=== PATIENT | male | born 1950 | race Two or more races ===

== ENCOUNTER 2021-02-14 10:30 | Inpatient (IN) | payer OTHER ==
[2021-02-14 11:01] VITALS: BMI 29.7
[2021-02-14] MEDS ORDERED: DEXAMETHASONE SOD PHOSPHATE 10 MG/1 ML VIAL IVPUSH ONE (11:21)
[2021-02-14] MEDS ORDERED: AZITHROMYCIN IVPB 500 MG in DEXTROSE 5%-WATER - 250 ML IVPB ONE (11:24)
[2021-02-14] MEDS ORDERED: CEFTRIAXONE 1,000 MG in DEXTROSE 5%-WATER - 50 ML IVPB ONE (11:25)
[2021-02-14 11:45] LABS: BASO % 0.2 % (0-2.0); LYMPH % 6.6 % (8-40); MCH 29.4 pg (25.7-33.7); MCHC 33.4 g/dl (32.0-35.9); MEAN CELL VOLUME 88.1 fl (80-96); MEAN PLT VOLUME 9.7 fl (7.5-11.1); NEUT % 87.2 % (42.8-82.8); PLATELET COUNT 293 K/MM3 (134-434); RBC 4.43 M/mm3 (4.00-5.60); RDW 14.1 % (11.9-15.9); VENOUS BASE EXCESS -3.5 mmol/L (-2-2); VENOUS O2 SATURATION 51.9 % (70-80); VENOUS PCO2 38.8 mmHg (38-52); VENOUS PH 7.361 (7.310-7.410)
[2021-02-14 11:52] LABS: INR 1.48 (0.83-1.09)
[2021-02-14 11:54] LABS: ACTIVATED PTT 31.6 SECONDS (25.2-36.5)
[2021-02-14] MEDS ORDERED: CEFTRIAXONE 1 GM/50 ML BAG ONE (11:57)
[2021-02-14] MEDS ORDERED: DEXAMETHASONE SOD PHOSPHATE 10 MG/1 ML VIAL ONE (11:57)
[2021-02-14] MEDS ORDERED: AZITHROMYCIN IVPB 500 MG/250 ML BAG IVPB ONE (11:58)
[2021-02-14 12:07] LABS: CHLORIDE 103 mmol/L (98-107); POTASSIUM 4.3 mmol/L (3.5-5.1); SODIUM 137 mmol/L (136-145)
[2021-02-14 12:09] LABS: ALBUMIN 2.9 g/dl (3.4-5.0); ANION GAP 13 MMOL/L (8-16); CALCIUM 8.5 mg/dL (8.5-10.1); CO2 22 mmol/L (21-32); GLUCOSE,RANDOM 225 mg/dL (74-106)
[2021-02-14 12:12] LABS: BILIRUBIN,DIRECT 0.4 mg/dL (0.0-0.2); SGPT/ALT 82 U/L (13-61)
[2021-02-14 12:13] LABS: CREATININE 1.8 mg/dL (0.55-1.3); SGOT/AST 156 U/L (15-37)
[2021-02-14 12:14] LABS: BILIRUBIN,TOTAL 0.9 mg/dL (0.2-1); TOT PROT 7.4 g/dl (6.4-8.2)
[2021-02-14 12:15] LABS: ALK PHOS 76 U/L (45-117)
[2021-02-14 12:18] LABS: LACTIC ACID 5.5 mmol/L (0.4-2.0); LDH 953 U/L (87-246)
[2021-02-14] MEDS ORDERED: SODIUM CHLORIDE 1,000 ML IV STA (12:19)
[2021-02-14 14:00] LABS: EPI CELLS >36 /uL (0-25.1); HYALINE CASTS 74 /uL (0-3.1); URINE APPEARANCE CLOUDY; URINE BACTERIA 35 /uL (0-1359); URINE BILIRUBIN 1+ (NEGATIVE); URINE COLOR DK YELLOW; URINE GLUCOSE (UA) NEGATIVE (NEGATIVE); URINE KETONE TRACE (NEGATIVE); URINE LEUK ESTERASE NEGATIVE (NEGATIVE); URINE NITRITE NEGATIVE (NEGATIVE); URINE PROTEIN 2+ (NEGATIVE)
[2021-02-14 14:02] LABS: URINE RBC 55.2 /uL (0-23.9); URINE WBC 77.3 /uL (0-25.8)
[2021-02-14 16:31] LABS: LACTIC ACID 2.8 mmol/L (0.4-2.0)
[2021-02-14] MEDS ORDERED: SODIUM CHLORIDE 1,000 ML IV SCH (23:30)
[2021-02-14] MEDS ORDERED: REMDESIVIR 200 MG in SODIUM CHLORIDE 210 ML IVPB ONE (23:53)
[2021-02-15] MEDS ORDERED: DEXMEDETOMIDINE IN 0.9 % NACL 200 MCG/50 ML EACH IVPB SCH (00:30)
[2021-02-15] MEDS: APIXABAN 5 MG TABLET PO SCH ×2 (01:20→10:17)
[2021-02-15 03:36] VITALS: TEMP 98.4
[2021-02-15] MEDS ORDERED: MORPHINE SULFATE 2 MG/ML VIAL IVPUSH ONE (06:06)
[2021-02-15] MEDS ORDERED: MORPHINE SULFATE 2 MG/ML VIAL ONE (06:08)
[2021-02-15 06:39] LABS: BASO % 0.1 % (0-2.0); HEMATOCRIT 34.9 % (35.4-49); HEMOGLOBIN 11.7 GM/dL (11.7-16.9); LYMPH % 5.1 % (8-40); MCH 29.2 pg (25.7-33.7); MCHC 33.5 g/dl (32.0-35.9); MEAN CELL VOLUME 87.3 fl (80-96); MEAN PLT VOLUME 9.9 fl (7.5-11.1); MONO % 5.1 % (3.8-10.2); NEUT % 89.7 % (42.8-82.8); PLATELET COUNT 264 K/MM3 (134-434); RBC 3.99 M/mm3 (4.00-5.60); RDW 13.8 % (11.9-15.9); WHITE BLOOD COUNT 11.3 K/mm3 (4.0-10.0)
[2021-02-15 06:46] LABS: CHLORIDE 107 mmol/L (98-107); POTASSIUM 3.8 mmol/L (3.5-5.1); SODIUM 139 mmol/L (136-145)
[2021-02-15 06:52] LABS: ALBUMIN 2.6 g/dl (3.4-5.0); ANION GAP 11 MMOL/L (8-16); BLOOD UREA NITROGEN 44.8 mg/dL (7-18); CALCIUM 7.8 mg/dL (8.5-10.1); CO2 21 mmol/L (21-32); MAGNESIUM 2.3 mg/dL (1.8-2.4)
[2021-02-15 06:53] LABS: GLUCOSE,RANDOM 296 mg/dL (74-106)
[2021-02-15 06:55] LABS: PHOSPHOROUS 3.5 mg/dL (2.5-4.9); SGPT/ALT 79 U/L (13-61)
[2021-02-15 06:56] LABS: CREATININE 1.2 mg/dL (0.55-1.3); LDH 922 U/L (87-246); SGOT/AST 124 U/L (15-37)
[2021-02-15 06:57] LABS: BILIRUBIN,TOTAL 0.6 mg/dL (0.2-1); TOT PROT 6.6 g/dl (6.4-8.2)
[2021-02-15 06:58] LABS: ALK PHOS 77 U/L (45-117)
[2021-02-15 07:19] VITALS: BP 146/105; PULSE 95
[2021-02-15] MEDS ORDERED: LORazepam 2 MG/ML SDV VIAL IVPUSH ONE (08:05)
[2021-02-15] MEDS ORDERED: LORazepam 2 MG/ML SDV VIAL ONE (08:09)
[2021-02-15] MEDS ORDERED: PROPOFOL 1,000,000 MCG/100 ML VIAL ONE (09:25)
[2021-02-15] MEDS ORDERED: ROCURONIUM BROMIDE 100 MG/10 ML VIAL ONE (09:25)
[2021-02-15] MEDS ORDERED: PROPOFOL 1,000,000 MCG/100 ML VIAL IVPB SCH (09:30)
[2021-02-15] MEDS ORDERED: MIDAZOLAM 100 MG in SODIUM CHLORIDE 100 ML IVPB SCH (09:30)
[2021-02-15] MEDS ORDERED: NOREPINEPHRINE BITARTRATE 4 MG/4 ML ML IV ONE (09:47)
[2021-02-15] MEDS ORDERED: MIDAZOLAM IN 0.9 % SOD.CHLORID 100 MG/100 ML PLAST..BAG IVPB SCH (09:51)
[2021-02-15] MEDS ORDERED: ALLOPURINOL 100 MG TABLET (FP) PO SCH (10:00)
[2021-02-15] MEDS ORDERED: DEXAMETHASONE SOD PHOSPHATE 4 MG/1 ML VIAL IVPUSH SCH (10:00)
[2021-02-15] MEDS ORDERED: PANTOPRAZOLE SODIUM 40 MG VIAL IVPUSH SCH (10:00)
[2021-02-15] MEDS ORDERED: COLCHICINE 0.6 MG CAP PO SCH (10:00)
[2021-02-15] MEDS ORDERED: REMDESIVIR 100 MG in SODIUM CHLORIDE 230 ML IVPB SCH (23:54)
== END 2021-02-15 10:01 | disposition expired | DRG 208 ==
LOC: JER 10:30 → JERBED 12:28 → JICU 23:36
PROVIDERS: ADMIT Internal Medicine Pulmonary Disease; ATTEND Internal Medicine Pulmonary Disease
PROC: 0BH17EZ Insertion of Endotracheal Airway into Trachea, Via Natural or Artificial Opening (ICD-10-PCS; principal; 2021-02-14)
PROC: XW033E5 Introduction of Remdesivir Anti-infective into Peripheral Vein, Percutaneous Approach, New Technology Group 5 (ICD-10-PCS; 2021-02-14)
PROC: 5A1935Z Respiratory Ventilation, Less than 24 Consecutive Hours (ICD-10-PCS; 2021-02-15)
PROC: 5A12012 Performance of Cardiac Output, Single, Manual (ICD-10-PCS; 2021-02-15)
DX: U07.1 COVID-19 (principal); J96.01 Acute respiratory failure with hypoxia; J12.82 Pneumonia due to coronavirus disease 2019; N17.9 Acute kidney failure, unspecified; I24.8 Other forms of acute ischemic heart disease; A08.39 Other viral enteritis; R50.9 Fever, unspecified; R00.0 Tachycardia, unspecified; I45.10 Unspecified right bundle-branch block; M10.9 Gout, unspecified; R77.8 Other specified abnormalities of plasma proteins; I48.91 Unspecified atrial fibrillation; I46.9 Cardiac arrest, cause unspecified
CPT/HCPCS: 36415; 71045-TC-FY; 80053; 81003; 82248; 82550; 82553; 82728; 82803; 83036; 83605; 83615; 83735; 84100; 84443; 84484; 85025; 85379; 85610; 85730; 86140; 86769; 87040; 87086; 87804; 93005; 93010; 94660; 99285-25; C9399; C9803; J1100; U0003; U0005